=== PATIENT | male | born 1965 | race African-American/Black ===

== ENCOUNTER 2019-03-03 15:10 | Emergency (ER) | payer MEDICAID ==
[~2019-03-03] VITALS: Ht 190.5 cm; Wt 89.0 kg
[2019-03-03 16:49] LABS: BASOPHILS % 0.5 % (0.0-2.0); EOSINOPHILS % 1.7 % (0.0-5.0); HEMATOCRIT. 40.1 % (42.0-52.0); HEMOGLOBIN. 13.6 g/dL (14.0-18.0); LYMPHOCYTES % 16.9 % (20.0-50.0); MEAN CORPUSCULAR HEMOGLOBIN 33.4 pg (28.0-32.0); MEAN CORPUSCULAR VOLUME 98.4 fL (80.0-94.0); MEAN PLATELET VOLUME 8.5 fl (7.4-10.4); MONOCYTES % 12.8 % (2.0-8.0); NEUTROPHILS % 68.1 % (40.0-76.0); PLATELET 183 x1000/uL (130-400); RED BLOOD CELL COUNT 4.08 mill/uL (4.7-6.1)
[2019-03-03 16:58] LABS: CHLORIDE 107 mEq/L (98-107)
[2019-03-03 17:03] LABS: ETHANOL BLOOD < 10 mg/dL
[2019-03-03 17:38] LABS: *AMPHETAMINES SCREEN URINE NEGATIVE (NEGATIVE); *BARBITURATES SCREEN URINE NEGATIVE (NEGATIVE); *BENZODIAZEPINES SCREEN URINE NEGATIVE (NEGATIVE); *COCAINE SCREEN URINE PRESUMTIVE POSITIVE (NEGATIVE); METHADONE URINE SCREEN NEGATIVE (NEGATIVE); OPIATES URINE SCREEN NEGATIVE (NEGATIVE)
[2019-03-03 17:39] LABS: CANNABINOID URINE SCREEN NEGATIVE (NEGATIVE); PHENCYCLIDINE URINE SCREEN NEGATIVE (NEGATIVE)
[2019-03-03] MEDS: KETOROLAC 30MG/ML VIAL IV ONE (18:06)
[2019-03-03] MEDS ORDERED: IOHEXOL-350 100 ML BOTTLE ONE (19:40)
[2019-03-03 22:45] VITALS: BP 144/72
== END 2019-03-03 23:48 | disposition home or self-care (01) ==
LOC: ER 15:10
DX: R07.89 Other chest pain (principal); F16.129 Hallucinogen abuse with intoxication, unspecified; R06.00 Dyspnea, unspecified; G47.00 Insomnia, unspecified; F14.129 Cocaine abuse with intoxication, unspecified; F17.200 Nicotine dependence, unspecified, uncomplicated; Z98.890 Other specified postprocedural states
CPT/HCPCS: 36415; 71045; 71275; 80053; 80305; 80320; 83880; 84484; 85025; 85379; 93005; 93970; 96374; 99284; J1885; Q9967; Z7610; G0480